=== PATIENT | male | born 2000 | race Caucasian/White ===

== ENCOUNTER 2024-02-05 17:24 | Emergency (ER) | payer OTHER, SELFPAY ==
[2024-02-05 17:32] VITALS: BP 154/79; PULSE 71; RESP 18; TEMP 36.6; O2SAT 98
--- NOTE | 2024-02-05 18:47 | ED_ITS ---
HPI - General Adult General Chief complaint: Shortness of Breath/Dyspnea Stated complaint: shortness of breath, chest tightness Time Seen by Provider: 02/05/24 18:05 History of Present Illness HPI narrative: This 23-year-old male comes in reporting some chest discomfort that occurs when taking a deep breath. He states that he is training for the [employer] and is running 60-70 miles a week. He added some weight training to this recently and now has some anterior chest pain along the sternum. He arrives here with normal vital signs. He does not report any nausea, vomiting, lightheadedness, shortness of breath, or diaphoresis. He does not have any cardiac risk factors. Related Data Home Medications ?Medication ?Instructions ?Recorded ?Confirmed No Known Home Medications 02/05/24 02/05/24 Allergies Allergy/AdvReac Type Severity Reaction Status Date / Time No Known Drug Allergies Allergy Verified 02/05/24 17:37 Review of Systems Status of ROS: Reports: 10 or more systems reviewed and unremarkable except as noted in History and below Narrative: Constitutional: No fevers, no weight gain or loss. Eyes: No discharge. No vision changes. HENT: No congestion, no sore throat, no ear pain. Cardiovascular: No palpitations. Respiratory: No shortness of breath, no wheezes, no cough. Gastrointestinal: No abdominal pain, no vomiting, no diarrhea. Genitourinary: No dysuria, no hematuria. Musculoskeletal: Normal range of motion. Skin: No rashes, no pruritis. Neurological: No dizziness, weakness, sensory change, speech change. Endo/Heme/Allergies: No bruising or bleeding. No polydipsia. Pysch: no suicidality, no anxiety, no insomnia. All other systems reviewed and are negative. Exam Narrative: Exam Narrative: Constitutional: Well-developed, well-nourished, no acute distress. HEENT: Normocephalic, atraumatic. Neck: Normal range of motion. Nontender. Supple. Heart: Regular. No murmurs. Normal rate. Intact distal pulses. Lungs: Clear to auscultation. No wheezes, rhonchi, or rales. The patient manifests distinct discomfort when taking a deep breath. Abdomen: Normal bowel sounds. Nontender. No rebound tenderness. Genitalia: Deferred. Back: No midline tenderness. Normal range of motion. Extremities: Normal range of motion. No injury. Skin: Intact. No rash. Warm. No erythema or pallor. Neurologic: No altered sensation. No weakness. Alert and oriented. Psychiatric: No suicidality. No anxiety or depression. No insomnia. Nursing notes and vitals signs are reviewed. Const: Vital Signs, click to edit/add: Vital Signs - 24 hr 02/05/24 17:32 Temperature 97.9 F Pulse Rate [Right Pulse Oximeter] 71 Respiratory Rate 18 Blood Pressure [Ri ght Upper Arm] 154/79 H Pulse Oximetry 98 Oxygen Delivery Me thod Room Air Course Vital Signs Vital signs: Initial Vital Signs Temperature 97.9 F 02/05/24 17:32 Temperature Source Temporal Artery Scan 02/05/24 17:32 Pulse Rate 71 02/05/24 17:32 Pulse Rhythm Regular 02/05/24 17:32 Pulse Strength 3+ Normal 02/05/24 17:32 Respiratory Rate 18 02/05/24 17:32 Blood Pressure 154/79 H 02/05/24 17:32 Blood Pressure Mean 104 02/05/24 17:32 Blood Pressure Position Sitting 02/05/24 17:32 Pulse Oximetry 98 02/05/24 17:32 Oxygen Delivery Method Room Air 02/05/24 17:32 Vital Signs Temperature 97.9 F 02/05/24 17:32 Pulse Rate 71 02/05/24 17:32 Respiratory Rate 18 02/05/24 17:32 Blood Pressure 154/79 H 02/05/24 17:32 Pulse Oximetry 98 02/05/24 17:32 Oxygen Delivery Method Room Air 02/05/24 17:32 Temperature 97.9 F 02/05/24 17:32 Pulse Rate 71 02/05/24 17:32 Respiratory Rate 18 02/05/24 17:32 Blood Pressure 154/79 H 02/05/24 17:32 Pulse Oximetry 98 02/05/24 17:32 Oxygen Delivery Method Room Air 02/05/24 17:32 Medical Decision Making MDM Narrative Medical decision making narrative: This patient is a healthy 23-year-old who actually is able to do very heavy exercise. Currently he is running 60-70 miles per week as he is training for a marathon. He recently started doing some upper body weightlifting and now has chest discomfort that is reproducible. I stated that the heavy mileage is sustainable for a few weeks or a month prior to a marathon race but he is probably doing too much training currently if this is his baseline activity. I recommended decreasing his mileage some and did have discussion with regard to proper diet and rest. His chest symptoms are reproducible typical of chest wall pain. He is okay to be discharged home. Discharge Plan Discharge Clinical Impression: Acute chest wall pain Patient Disposition: Home, Self-Care Condition: Stable Additional Instructions: Activity as tolerated. Use [id number] medicines as needed and directed. Follow up with MD return if worsening. Prescriptions: No Action No Known Home Medications Stand Alone Forms: [employer] Info Instructions
== END 2024-02-05 19:01 | disposition home or self-care (01) ==
PROVIDERS: Emergency Provider Emergency Medicine Emergency Medical Services
DX: R07.89 Other chest pain (principal)
CPT/HCPCS: 99282; 99283; 99284